=== PATIENT | male | born 1980 | race African-American/Black ===

== ENCOUNTER 2020-09-29 12:29 | Outpatient (REF) | payer OTHER, SELFPAY | END 2020-09-29 12:30 | disposition home or self-care (01) | LOC: HO.LAB 12:29 | PROVIDERS: PCP Internal Medicine; Visit Provider Internal Medicine | DX: Z20.822 Contact with and (suspected) exposure to COVID-19 (principal) | CPT/HCPCS: 36415; C9803; U0003 ==

== ENCOUNTER 2021-02-19 10:42 | Emergency (ER) | payer OTHER, SELFPAY ==
[2021-02-19 11:01] VITALS: BP 155/107; PULSE 88; RESP 18; TEMP 36.6; O2SAT 97; BMI 35.2
--- NOTE | 2021-02-19 11:44 | ED_ITS ---
HPI - General Adult General Chief complaint: Upper Respiratory Symptoms Stated complaint: asthma Time Seen by Provider: 02/19/21 11:09 Source: patient Mode of arrival: ambulatory Limitations: no limitations History of Present Illness HPI narrative: 41-year-old male who presents emergency department for evaluation of an asthma attack. Patient states these had an exacerbation of his asthma for 2 weeks. He states that he feels short of breath, has dyspnea on exertion has wheezing. He denies cough. He states that he has had chest tightness in the anterior part of his chest which is moderate to severe at times. The tightness is intermittent and is worse with breathing. He denied fever, chills, nausea, vomiting, myalgias, arthralgias. The patient states that he has been using his albuterol inhaler and nebulizer frequently with minimal improvement of his symptoms. The patient is on a preventative inhaler, Wixela but he ran out of this medication. He is taking montelukast. Related Data Previous Rx's Medication Instructions Recorded albuterol sulfate 2.5 mg INHALATION TID PRN #300 ml 09/22/20 montelukast 10 mg tablet 10 mg PO BEDTIME #270 tab 10/11/20 albuterol sulfate 90 mcg/actuation 2 puff INHALATION Q6H PRN #8.5 g 10/18/20 aerosol inhaler albuterol sulfate 2.5 mg INHALATION Q4H PRN #90 ml 02/19/21 fluticasone propion-salmeterol 1 inh INHALATION Q12H #60 ea 02/19/21 [Wixela Inhub] prednisone 60 mg PO DAILY 5 Days #15 tab 02/19/21 Allergies Allergy/AdvReac Type Severity Reaction Status Date / Time No Known Allergies Allergy Unverified 05/25/20 16:39 Review of Systems Review of Systems: Yes all other systems are reviewed and are negative FOR[facility]LY [facility], [facility] Past Medical History FOR[facility]LY [facility], [facility] Narrative: Past medical history: Asthma. Past surgical history: None. Social history: The patient denies tobacco use. He drinks alcohol 2 to 3 times a week in moderation. He smokes marijuana occasionally. Medical History (Updated 02/19/21 @ 11:53 by Gerson Quezada MD) Asthma Social History Social History Advance Directives: Yes Advance Directives Information Provided: Yes Advance Directives on File: No Physical Exam Vital Signs: Vital Signs: Last Vital Signs Temp 98 F 02/19/21 11:01 Pulse 88 02/19/21 11:01 Resp 18 02/19/21 11:01 BP 155/107 H 02/19/21 11:01 Pulse Ox 97 02/19/21 11:01 Body Mass Index 35.2 Const: General: cooperative and healthy appearing Orien tation/consciousness: oriented to person and oriented to place Limitations: no limitations HENMT: Head: Yes normal to inspection, Yes normocephalic and Yes atraumatic Ears: external ears normal General nose exam: Normal external nose present Face and sinus: Yes normal facial exam Mouth: Normal oral and palatal mucosa present Throat: Yes posterior oropharynx normal Eyes: Periorbital: periorbital findings normal Eyelids: Yes eyelids normal Conjunctivae: conjunctivae normal Sclerae: sclerae normal Corneas: corneas normal Pupils: Equal, round and reactive pupils present Direct Ophthalmoscopy: normal light reflex Neck: Neck: Yes full ROM, Yes no lymphadenopathy, Yes no meningeal signs, Yes trachea midline and Yes supple Chest: Chest palpation & inspection: normal inspection of the chest and normal palpation of entire chest wall Resp: Effort & Inspection: normal respiratory effort and able to speak in complete sentences Auscultation: wheezes expiratory wheezes, inspiratory wheezes and throughout Cardio: Rate: regular rate Rhythm: regular rhythm Heart sounds: S1 normal heart sound present, S2 normal heart sound present and no murmurs GI: Inspection: Yes normal to inspection Palpation (GI): Soft to palpation, nontender, no guarding, not rigid and No hepatosplenomegaly present : General: Yes no CVA tenderness Back/Spine/Pelvis: Back: no CVA tenderness Cervical Spine: normal cervical lordosis Thoracic/Lumbar Spine: thoracic and lumbar spine normal to inspection Skin: Lesions: no lesions Rashes: no rashes Wounds: no wounds Neuro: General: oriented to person, oriented to place and no meningeal signs Cranial nerves: Yes Equal, round and reactive pupils present Cognition (Neuro): normal cognition Motor exam (neuro): 5/5 motor strength present throughout Extrem: General: Yes normal to inspection and Yes full ROM Psych: Appearance: well kempt Mental Status: mental status grossly normal Speech and movement: Normal speech and movement present Affect: normal affect Attitude: cooperative Thought process: Normal thought process present Thought content: Normal thought content present Course Course Course Narrative: 41-year-old male who presents emergency department for evaluation of 2 weeks of asthma exacerbation with decreased effectiveness of his albuterol treatments. The patient denied fever or cough but is experiencing pleuritic chest pain. The patient's vital signs revealed an elevated blood pressure of 155/107 otherwise normal respiratory rate and normal O2 saturation of 97% on room air. The patient did not appear to be in respiratory distress but he does have inspiratory expiratory wheezing throughout lung kemp. The patient's presentation is consistent with an asthma exacerbation most likely triggered by pollen and change in weather, these are the triggers that the patient's at in the past. The patient was started on prednisone 60 mg once a day for 5 days. He is given his 1st dose orally here in the emergency department. I will refill his preventative inhaler and give him a refill on his albuterol nebulizer solutions. The patient was given verbal and printed instructions prior to discharge. The patient was advised to follow-up with their PCP in 2 days and to return to the emergency department if their symptoms get worse or if they develop any new symptoms that are concerning to them Discharge Plan Discharge Clinical Impression: Asthma exacerbation Qualifiers: Asthma severity: moderate Asthma persistence: persistent Qualified Code(s): J45.41 - Moderate persistent asthma with (acute) exacerbation Patient Disposition: Home, Self-Care Instructions: Asthma (ED) Prescriptions: New prednisone 20 mg tablet 60 mg PO DAILY 5 Days Qty: 15 RF: 0 albuterol sulfate 2.5 mg /3 mL (0.083 %) solution for nebulization 2.5 mg inhalation Q4H PRN (Reason: shortness of breath or wheezing) Qty: 90 RF: 0 fluticasone propion-salmeterol [Wixela Inhub] 250-50 mcg/dose blister with device 1 inh inhalation Q12H Qty: 60 RF: 0 No Action albuterol sulfate 2.5 mg /3 mL (0.083 %) solution for nebulization 2.5 mg inhalation TID PRN (Reason: bronchospasm) Qty: 300 RF: 1 montelukast 10 mg tablet 10 mg PO BEDTIME Qty: 270 RF: 2 albuterol sulfate [ProAir HFA] 90 mcg/actuation HFA aerosol inhaler 2 puff inhalation Q6H PRN (Reason: shortness of breath or wheezing) Qty: 8.5 RF: 0
[2021-02-19 11:57] VITALS: BP 155/108; PULSE 76; RESP 98; O2SAT 97
[2021-02-19] MEDS: predniSONE 20 MG TABLET 60 MG PO (12:06)
== END 2021-02-19 12:45 | disposition home or self-care (01) ==
PROVIDERS: Emergency Provider Emergency Medicine Emergency Medical Services; PCP Internal Medicine
DX: J45.41 Moderate persistent asthma with (acute) exacerbation (principal); Z79.899 Other long term (current) drug therapy
CPT/HCPCS: 99283; 99284

== ENCOUNTER 2021-03-09 07:40 | Emergency (ER) | payer OTHER, SELFPAY ==
[2021-03-09 07:41] VITALS: BP 165/103; PULSE 95; RESP 20; TEMP 36.6; O2SAT 95; BMI 36.0
--- NOTE | 2021-03-09 08:43 | ED.ASTHMA ---
HPI - Asthma General Chief Complaint: Asthma Stated Complaint: ASTHMA Time Seen by Provider: 03/09/21 08:23 Source: patient Mode of arrival: ambulatory Limitations: no limitations History of Present Illness HPI Narrative: 41-year-old male who presents emergency department for evaluation of asthma exacerbation, shortness of breath and nonproductive cough. the patient has had the symptoms for approximately 1 month. The patient was seen in the emergency department on 02/19/2021 by me at that time diagnosed with an asthma exacerbation. The patient was treated at that time with a pulse dose of prednisone x5 days, nebulizer inhalers and started on a preventive inhaler. He states that he felt better while he was on the steroids with his symptoms came back shortly after the pulse dose steroids stop. He states that he is using his ProAir albuterol inhaler 2 puffs 4 to 6 times a day and his nebulized albuterol solution 3 to 4 times a day and despite this he still feels short of breath. He states he has had a cough which is nonproductive. He denied chest pain. He denied fever, chills, abdominal pain, nausea or vomiting. The patient does work as a first line supervisor he states that his asthma is sensitive to pollen. Related Data Previous Rx's Medication Instructions Recorded albuterol sulfate 2.5 mg INHALATION TID PRN #300 ml 09/22/20 montelukast 10 mg tablet 10 mg PO BEDTIME #270 tab 10/11/20 albuterol sulfate 90 mcg/actuation 2 puff INHALATION Q6H PRN #8.5 g 10/18/20 aerosol inhaler albuterol sulfate 2.5 mg INHALATION Q4H PRN #90 ml 02/19/21 fluticasone propion-salmeterol 1 inh INHALATION Q12H #60 ea 02/19/21 [Wixela Inhub] prednisone 60 mg PO DAILY 5 Days #15 tab 02/19/21 albuterol sulfate 2.5 mg INHALATION Q4H PRN #90 ml 03/09/21 albuterol sulfate [ProAir HFA] 2 puff INHALATION Q4-6H PRN #8.5 g 03/09/21 prednisone 60 mg PO DAILY 5 Days #15 tab 03/09/21 prednisone See Rx Instructions .ROUTE 03/09/21 .COMPLEX #20 tab Allergies Allergy/AdvReac Type Severity Reaction Status Date / Time No Known Allergies Allergy Unverified 05/25/20 16:39 Review of Systems Review of Systems: Yes all other systems are reviewed and are negative Neurologic: Reports Abnormal speech present COUNT INCLUDES THE [facility] Past Medical History COUNT INCLUDES THE [facility] Narrative: Social history: The patient denies tobacco use, he drinks alcohol occasionally, he states that he occasionally smokes marijuana but has not used marijuana in 1 month. Medical History Asthma Social History Social History Advance Directives: No Advance Directives Information Provided: No Physical Exam Vital Signs: Vital Signs: Last Vital Signs Temp 97.8 F 03/09/21 07:41 Pulse 95 03/09/21 07:41 Resp 20 03/09/21 07:41 BP 165/103 H 03/09/21 07:41 Pulse Ox 95 03/09/21 07:41 Body Mass Index 36.0 Const: General: cooperative and healthy appearing Orientation/consciousness: oriented to person and oriented to place Limitations: no limitations HENMT: Head: Yes normal to inspection, Yes normocephalic and Yes atraumatic Ears: external ears normal General nose exam: Normal external nose present Face and sinus: Yes normal facial exam Mouth: Normal oral and palatal mucosa present Throat: Yes posterior oropharynx normal Eyes: Periorbital: periorbital findings normal Eyelids: Yes eyelids normal Conjunctivae: conjunctivae normal Sclerae: sclerae normal Corneas: corneas normal Pupils: Equal, round and reactive pupils present Direct Ophthalmoscopy: normal light reflex Neck: Neck: Yes full ROM, Yes no lymphadenopathy, Yes no meningeal signs, Yes trachea midline and Yes supple Chest: Chest palpation & inspection: normal inspection of the chest and normal palpation of entire chest wall Resp: Other: Normal respiratory pattern, symmetric breath sounds high medically, expiratory wheezing with good inspiratory and expiratory flow Cardio: Rate: regular rate Rhythm: regular rhythm Heart sounds: S1 normal heart sound present, S2 normal heart sound present and no murmurs GI: Inspection: Yes normal to inspection Palpation (GI): Soft to palpation, nontender, no guarding, not rigid and No hepatosplenomegaly present : General: Yes no CVA tenderness Back/Spine/Pelvis: Back: no CVA tenderness Cervical Spine: normal cervical lordosis Thoracic/Lumbar Spine: thoracic and lumbar spine normal to inspection Skin: Lesions: no lesions Rashes: no rashes Wounds: no wounds Neuro: General: oriented to person, oriented to place and no meningeal signs Cranial nerves: Yes CN's II-XII intact bilaterally and Yes Equal, round and reactive pupils present Cognition (Neuro): normal cognition Speech: Abnormal speech present Motor exam (neuro): 5/5 motor strength present throughout Extrem: General: Yes normal to inspection and Yes full ROM Psych: Appearance: well kempt Mental Status: mental status grossly normal Speech and movement: Normal speech and movement present Affect: normal affect Attitude: cooperative Thought process: Normal thought process present Thought content: Normal thought content present Course Course Course Narrative: 41-year-old male with history of asthma who has had shortness of breath, cough and wheezing x1 month. Patient was seen in the emergency department on 02/19/2021 and did improve with pulse dose steroids but his symptoms returned shortly after he completed the steroids. Physical examination did reveal expiratory wheezing otherwise was unremarkable. Patient was started on a another pulse dose of steroids 60 mg once a day for 5 days and then will be placed on a tapering course of prednisone 40 mg tapered off over 8 days. Patient was given a refill for his ProAir albuterol inhaler and for his Albuterol nebulizer solutions as well. Discharge Plan Discharge Clinical Impression: Asthma with acute exacerbation Patient Disposition: Home, Self-Care Instructions: Asthma (ED) Additional Instructions: Take prednisone 20 mg pills, 3 pills once a day for 5 days. I prescribed a 2nd prescription for prednisone 10 mg pills. after you complete the 5 day pulse course of steroids start prednisone 4 pills once a day for 2 days then 3 pills once a day for 2 days, then 2 pills once a day for 2 days then 1 pill once a day for 2 days. Continue to use your albuterol ( ProAir) inhaler 2 puffs every 4-6 hours as needed for shortness of breath. Continue to use your nebulizer solution 1 packet every 4 hours as needed for shortness of breath not relieved by your ProAir. Continue your preventive inhaler as well. Follow-up with your doctor in 2 days. Please return to the emergency department if your symptoms get worse or if you develop any symptoms that are concerning to you. Prescriptions: New prednisone 20 mg tablet 60 mg PO DAILY 5 Days Qty: 15 RF: 0 prednisone 10 mg tablet See Rx Instructions .ROUTE .COMPLEX Qty: 20 RF: 0 albuterol sulfate [ProAir HFA] 90 mcg/actuation HFA aerosol inhaler 2 puff inhalation Q4-6H PRN (Reason: shortness of breath or wheezing) Qty: 8.5 RF: 0 albuterol sulfate 2.5 mg /3 mL (0.083 %) solution for nebulization 2.5 mg inhalation Q4H PRN (Reason: shortness of breath or wheezing) Qty: 90 RF: 0 No Action albuterol sulfate 2.5 mg /3 mL (0.083 %) solution for nebulization 2.5 mg inhalation TID PRN (Reason: bronchospasm) Qty: 300 RF: 1 montelukast 10 mg tablet 10 mg PO BEDTIME Qty: 270 RF: 2 albuterol sulfate [ProAir HFA] 90 mcg/actuation HFA aerosol inhaler 2 puff inhalation Q6H PRN (Reason: shortness of breath or wheezing) Qty: 8.5 RF: 0 prednisone 20 mg tablet 60 mg PO DAILY 5 Days Qty: 15 RF: 0 albuterol sulfate 2.5 mg /3 mL (0.083 %) solution for nebulization 2.5 mg inhalation Q4H PRN (Reason: shortness of breath or wheezing) Qty: 90 RF: 0 fluticasone propion-salmeterol [Wixela Inhub] 250-50 mcg/dose blister with device 1 inh inhalation Q12H Qty: 60 RF: 0
== END 2021-03-09 08:57 | disposition home or self-care (01) ==
PROVIDERS: Emergency Provider Emergency Medicine Emergency Medical Services; PCP Internal Medicine
DX: J45.901 Unspecified asthma with (acute) exacerbation (principal); Z79.899 Other long term (current) drug therapy
CPT/HCPCS: 99283

== ENCOUNTER 2021-09-05 07:21 | Outpatient (REF) | payer OTHER, SELFPAY | END 2021-09-05 07:22 | disposition home or self-care (01) | LOC: HO.HMGCLDS 07:21 | PROVIDERS: Visit Provider Internal Medicine | DX: Z20.822 Contact with and (suspected) exposure to COVID-19 (principal) | CPT/HCPCS: C9803; U0003; U0005 ==

== ENCOUNTER 2021-10-07 03:14 | Emergency (ER) | payer SELFPAY ==
--- NOTE | ~2021-10-07 | XR_ITS ---
EXAMINATION: XR CHEST CLINICAL INFORMATION: Shortness of breath COMPARISON: 09/20/2015 TECHNIQUE: Frontal view of the chest was obtained. FINDINGS: Cardiac leads overlie the chest. The lungs are well expanded. There is no focal consolidation, edema, or effusion. No pneumothorax. The cardiomediastinal silhouette is within normal limits. No acute osseous abnormality. XR/XR chest 1V IMPRESSION: Clear lungs.
[2021-10-07 03:34] VITALS: BP 167/111; PULSE 96; RESP 24; TEMP 36.7; O2SAT 93; BMI 34.0
--- NOTE | 2021-10-07 03:40 | ED_ITS ---
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) Associated symptoms: dry cough Asthma History: childhood onset Treatments Prior to Arrival: inhaled bronchodilator Related Data Home Medications Medication Instructions Recorded Confirmed albuterol sulfate mg INHALATION 10/07/21 albuterol sulfate 90 2 inh INHALATION Q6H PRN 10/07/21 10/07/21 mcg/actuation aerosol inhaler fluticasone propionate 115 2 inh INHALATION BID 10/07/21 10/07/21 mcg-salmeterol 21 mcg/actuation HFA inhaler (Advair HFA) montelukast 10 mg tablet 1 tab PO DAILY 10/07/21 10/07/21 Previous Rx's Medication Instructions Recorded blood pressure monitor #1 ea 07/17/21 albuterol sulfate 2.5 mg (3 mL) INHALATION Q4-6H PRN 10/07/21 #75 ml prednisone 20 mg tablet 60 mg PO DAILY 5 Days #15 tab 10/07/21 Allergies Allergy/AdvReac Type Severity Reaction Status Date / Time No Known Allergies Allergy Verified 09/21/21 09:11 Review of Systems Verdana 4l Review of Systems: Verdana 4d Verdana 4d Constitutional : No Fever, No Chills ENT/Mouth : No Hoarseness, No sore throat, No Rhinorrhea Eyes: No Redness, No Discharge, No Vision Changes Cardiovascular : No Chest Pain, positive SOB, positive Dyspnea on Exertion, No Edema RespiratoryRespiratory : positive Cough, No Sputum, positive Wheezing, Gastrointestinal : No Nausea, No Vomiting, No Diarrhea, No abdominal Pain Genitourinary : No Dysuria, No Hematuria Musculoskeletal : No joint pain, No Myalgias Skin : No rash Neuro : No Weakness, No Numbness, No Headache Psych : No anxiety, depression Heme/Lymph: No Bruising, No Bleeding Endocrine : No Polyuria, No Polydipsia All other systems reviewed and are negative PMFSH Past Medical History Attestation statement: The following information was validated with the patient. Medical History Asthma Generalized anxiety disorder Obesity (BMI 30-39.9) Tobacco abuse Surgical History (Updated 07/17/21 @ 15:42 by JENNIFFER Lees) No pertinent past surgical history Family History Family History (Updated 07/17/21 @ 15:43 by JENNIFFER Lees) Mother Diabetes Father No problems noted. Social History Social History Housing: House Alcohol intake: current Alcohol intake frequency: a few times a month Patient Tobacco Use Status: Never used Tobacco e-Cigarette/Vaping Use: Never Used Second Hand Smoke Exposure: No Substance Use Type: Marijuana Advance Directives: No Advance Directives Information Provided: Yes service: No Current occupational status: employed Current occupation: Self employed Cognitive needs: No Hearing needs: No Vision needs: No Physical Exam Verdana 4l Vital Signs: Verdana 4d Verdana 4d Vital Signs: Verdana 4d Verdana 4Bd Last Vital Signs Verdana 4d Manager Hematology New 4d Manager Hematology New 4d Temp 98.1 F 10/07/21 03:34 Manager Hematology New 4d Pulse 93 10/07/21 05:49 Manager Hematology New 4d Resp 19 10/07/21 05:49 BP 147/84 H 10/07/21 05:49 Pulse Ox 100 10/07/21 05:49 BMI result Body Mass Index 34.0 Appearance: Alert. Oriented X3. Mild acute distress. Eyes: Pupils equal, round and reactive to light. ENT: Pharynx normal. Neck: Normal inspection. Neck supple. CVS: Normal heart rate and rhythm. Pulses normal. Respiratory: Mild respiratory distress - retractions and tachypnea. Breath sounds decreased throughout with diffuse end exp wheezes Abdomen: Soft and nontender. Skin: Skin warm and dry. Normal skin color. Normal skin turgor. Extremities: No lower extremity edema. No calf ttp Neuro: Oriented X 3. No motor deficit. No sensory deficit. Course Course Course Narrative: adding on duoneb patient still very tachypneic - diaphoretic still tight and wheezing, will repeat 5mg neb though much improved diaphoresis resolved will need admission for asthma, patient aware hospitalist was going to admit but patient now states he feels better and wants to maybe go home patient does not want to stay, 93% on RA, alert and oriented x 3 states he is aware we want to admit him but states he can control this at home, RN present for entire conversation. He was instructed to call 911 for any issues and that he could come back at any time and that we recommended admission. 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 Dispo per results and findings. Lab Data Result diagrams: 10/07/21 03:56 10/07/21 03:56 Labs: Lab Results 10/07/21 10/07/21 10/07/21 Range/Units 03:38 03:56 03:56 WBC 10.7 (4.8-10.8) X10*3/uL RBC 4.39 L (4.60-5.80) X10*6/uL Hgb 14.1 (14.0-18.0) g/dl Hct 41.7 L (42.0-52.0) % MCV 95.0 (80.0-98.0) fL MCH 32.1 (27.0-33.0) pg MCHC 33.8 (31.0-36.0) g/dl RDW 11.9 (11.0-16.0) % Plt Count 272 (160-400) X10*3/uL MPV 10.6 (9.4-12.4) fL Immature Gran % (Auto) 0.3 (0.0-0.4) % Neut % (Auto) 64.8 (45-73) % Lymph % (Auto) 26.5 (20-40) % [place] % (Auto) 7.2 (2-11) % Eos % (Auto) 0.5 (0-4) % Baso % (Auto) 0.7 (0-2) % Lymph # (Auto) 2.8 (1.2-4.9) X10*3/uL [place] # (Auto) 0.8 (0.1-1.2) X10*3/uL Eos # (Auto) 0.1 (0.0-0.4) X10*3/uL Baso # (Auto) 0.1 (0.0-0.2) X10*3/uL Abs Immat Gran (auto) 0.03 (0.00-0.03) X10*3/uL Absolute Neuts (auto) 6.9 (2.0-8.3) x10*3/uL Absolute Nucleated RBC 0.000 (0.0-0.012) X10*3/uL Nucleated RBC % (auto) 0.0 (0.0-0.2) /100WBC Sodium 142 (135-145) mmol/L Potassium 4.0 (3.3-5.1) mmol/L Chloride 111 H (96-108) mmol/L Carbon Dioxide 20 L (22-29) mmol/L Anion Gap 15 (12-20) BUN 11 (9-16) mg/dL Creatinine 1.01 (0.5-1.4) mg/dL Estim Creat Clear Calc 114.5 Estimated GFR > 60 Random Glucose 123 H (60-115) mg/dL Calcium 9.4 (8.4-10.2) mg/dL COVID-19 ([facility]) Negative (Negative) COVID-19 Clin Com See Note Critical Care Time Critical Care Time Critical Care Time: Yes Total Critical Care Time: 60 Attestation: repeat hour long nebs, reassessments I attest to this time spent taking care of the patient Discharge Plan Discharge Clinical Impression: Asthma with exacerbation Patient Disposition: Home, Self-Care Instructions: Asthma (ED) Additional Instructions: return to ED for any worsening symptoms or concerns you were offered admission but declined, this was a serious asthma attack. you can come back at any time. if you have any issues please call 911. Prescriptions: New albuterol sulfate 2.5 mg /3 mL (0.083 %) solution for nebulization 2.5 mg inhalation Q4-6H PRN (Reason: bronchospasm) Qty: 75 0RF prednisone 20 mg tablet 60 mg PO DAILY 5 Days Qty: 15 0RF No Action albuterol sulfate 2.5 mg /3 mL (0.083 %) solution for nebulization inhalation 0RF montelukast 10 mg tablet 1 tab PO DAILY 0RF albuterol sulfate 90 mcg/actuation HFA aerosol inhaler 2 inh inhalation Q6H PRN (Reason: Shortness Of Breath Or Wheezing) 0RF Advair HFA 115-21 mcg/actuation Hfa Aerosol Inhaler 2 inh INHALATION BID 0RF (DME) blood pressure monitor Kit See Rx Instructions .Route Qty: 1 0RF Rx Instructions: As directed Stand Alone Forms: Work/School Release
[2021-10-07] MEDS: Magnesium Sulfate/H2O 2 GM/50 ML PIGGYBACK IV (03:49)
[2021-10-07] MEDS: Albuterol Sulfate (0.083%) 2.5 MG/3 ML VIAL.NEB 10 MG INHALE (03:49)
[2021-10-07] MEDS: methylPREDNISolone Sod Succ 125 MG/2 ML VIAL IVPUSH (03:49)
[2021-10-07 03:56] VITALS: BP 147/113; PULSE 94; RESP 31; O2SAT 100
[2021-10-07 04:02] LABS: MANUAL DIFF FLAG NO
--- NOTE | 2021-10-07 04:02 | PC.NURSE ---
dr slater at bedside pt diaphoretic, reports it's not getting better. pt continues with neb tx, mag infusing. pt on bedside cardiac nurse, nsr.
[2021-10-07 04:03] LABS: Basophils Absolute Auto 0.1 X10*3/uL (0.0-0.2); Basophils Percent Auto 0.7 % (0-2); Eosinophils Absolute Auto 0.1 X10*3/uL (0.0-0.4); Eosinophils Percent Auto 0.5 % (0-4); Hematocrit 41.7 % (42.0-52.0); Hemoglobin 14.1 g/dl (14.0-18.0); Imm Gran Abs Auto 0.03 X10*3/uL (0.00-0.03); Imm Gran Pct Auto 0.3 % (0.0-0.4); Lymphocytes Absolute Auto 2.8 X10*3/uL (1.2-4.9); Lymphocytes Percent Auto 26.5 % (20-40); Mean Corpuscular HGB Conc 33.8 g/dl (31.0-36.0); Mean Corpuscular Hemoglobin 32.1 pg (27.0-33.0); Mean Platelet Volume 10.6 fL (9.4-12.4); Monocytes Absolute Auto 0.8 X10*3/uL (0.1-1.2); Monocytes Percent Auto 7.2 % (2-11); Neutrophils Absolute Auto 6.9 x10*3/uL (2.0-8.3); Neutrophils Percent Auto 64.8 % (45-73); Platelet Count 272 X10*3/uL (160-400); Red Blood Count 4.39 X10*6/uL (4.60-5.80); Red Cell Distribution Width 11.9 % (11.0-16.0); White Blood Count 10.7 X10*3/uL (4.8-10.8)
[2021-10-07] MEDS: Albuterol/Iprat 2.5/0.5MG 3 ML AMPUL.NEB INHALE (04:11)
[2021-10-07 04:14] VITALS: BP 164/119; PULSE 103; RESP 27; O2SAT 100
[2021-10-07 04:16] LABS: COVID-19 Test Negative (Negative)
[2021-10-07 04:23] LABS: Anion Gap 15 (12-20); Blood Urea Nitrogen 11 mg/dL (9-16); Calcium 9.4 mg/dL (8.4-10.2); Carbon Dioxide 20 mmol/L (22-29); Chloride 111 mmol/L (96-108); Creatinine Clr Calc Pharmacy 114.5; Estimated Glomerular Filt Rate > 60; Glucose Random 123 mg/dL (60-115); Sodium 142 mmol/L (135-145)
[2021-10-07 04:28] VITALS: BP 157/119; PULSE 105; RESP 21; O2SAT 98
--- NOTE | 2021-10-07 04:30 | PC.NURSE ---
initial neb tx complete. dr slater to bedside, reeval with persistent wheezing. plan for 5mg neb tx in ~30minutes and likely admission to hospital for further mgmt. pt agreeable.
[2021-10-07] MEDS: Albuterol Sulfate (0.083%) 2.5 MG/3 ML VIAL.NEB 5 MG INHALE (04:49)
[2021-10-07 05:49] VITALS: BP 147/84; PULSE 93; RESP 19; O2SAT 100
[2021-10-07 06:11] VITALS: BP 141/95; PULSE 97; RESP 16; O2SAT 94
--- NOTE | 2021-10-07 06:12 | PC.NURSE ---
this rn with dr slater to bedside, encouraging pt to be admitted to hospital. pt refusing admission to hospital, requesting DC home. pt educated on reasons to return/call 911. pt verbalizes understanding.
== END 2021-10-07 06:21 | disposition home or self-care (01) ==
PROVIDERS: Emergency Provider Emergency Medicine
DX: J45.901 Unspecified asthma with (acute) exacerbation (principal); R06.02 Shortness of breath; F12.90 Cannabis use, unspecified, uncomplicated; Z20.822 Contact with and (suspected) exposure to COVID-19; Z79.899 Other long term (current) drug therapy
CPT/HCPCS: 36415; 71045; 80048; 85025; 87635; 96365; 96376; 99284; J2930; J3475

== ENCOUNTER 2022-01-01 10:21 | Emergency (ER) | payer SELFPAY ==
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
[2022-01-01 10:25] VITALS: BP 137/88; PULSE 71; RESP 18; TEMP 36.3; O2SAT 97; BMI 34.7
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
== END 2022-01-01 13:32 | disposition home or self-care (01) ==
PROVIDERS: Emergency Provider Emergency Medicine; PCP Internal Medicine
DX: S39.012A Strain of muscle, fascia and tendon of lower back, initial encounter (principal); S46.912A Strain of unspecified muscle, fascia and tendon at shoulder and upper arm level, left arm, initial encounter; R07.89 Other chest pain; J45.909 Unspecified asthma, uncomplicated; V43.52XA Car driver injured in collision with other type car in traffic accident, initial encounter; Y93.9 Activity, unspecified; Y92.410 Unspecified street and highway as the place of occurrence of the external cause; Y99.9 Unspecified external cause status
CPT/HCPCS: 71101; 72100; 73030; 99283

== ENCOUNTER 2022-10-02 09:39 | Outpatient (REF) | payer OTHER, SELFPAY ==
--- NOTE | 2022-10-02 09:45 | ECG_ITS ---
Test Reason : essen htn Blood Pressure : / mmHG Vent. Rate : 072 BPM Atrial Rate : 072 BPM P-R Int : 138 ms QRS Dur : 082 ms QT Int : 374 ms P-R-T Axes : 006 053 004 degrees QTc Int : 409 ms Normal sinus rhythm Normal ECG When compared with ECG of 06-JAN-2006 18:16, No significant changes seen Referred By: Kaitlynn Moreau Electronically Signed By:THEA LOUIS
[2022-10-02 11:06] LABS: Alanine Aminotransferase 33 U/L (0-40); Albumin Level 4.4 g/dL (3.5-5.0); Alkaline Phosphatase 71 U/L (39-117); Anion Gap 13 (12-20); Aspartate Amino Transferase 27 U/L (5-37); Bilirubin Total 0.8 mg/dL (0.0-1.0); Blood Urea Nitrogen 13 mg/dL (9-16); Calcium 9.4 mg/dL (8.4-10.2); Carbon Dioxide 26 mmol/L (22-29); Chloride 106 mmol/L (96-108); Cholesterol 217 mg/dL; Estimated Glomerular Filt Rate > 60; Glucose Fasting 110 mg/dL (60-99); HDL Cholesterol 47 mg/dL; LDL Cholesterol Calculated 159 mg/dl; Potassium 4.8 mmol/L (3.3-5.1); Sodium 140 mmol/L (135-145); Total Protein 7.3 g/dL (6.5-8.0); Triglycerides 56 mg/dL
== END 2022-10-02 09:40 | disposition home or self-care (01) ==
LOC: HO.LAB 09:39
PROVIDERS: PCP Nurse Practitioner Family; Visit Provider Nurse Practitioner Family
DX: I10 Essential (primary) hypertension (principal)
CPT/HCPCS: 36415; 80053; 80061; 93005

== ENCOUNTER 2023-06-04 07:47 | Emergency (ER) | payer OTHER, SELFPAY ==
[2023-06-04 07:54] VITALS: BP 155/98; PULSE 77; RESP 16; TEMP 37; O2SAT 98; BMI 35.7
--- NOTE | 2023-06-04 08:12 | ED_ITS ---
HPI - Asthma General Chief Complaint: Asthma Stated Complaint: Asthma Diff Breathing Time Seen by Provider: 06/04/23 08:06 Source: patient Mode of arrival: ambulatory Limitations: no limitations History of Present Illness HPI Narrative: 43-year-old male with known history of asthma for many years patient been having wheezing, difficulty breathing, and dry cough eating for few days, patient has been using his bronchodilator no relief usually gets better after short course of prednisone. Was then admitted to the hospital for asthma related problem in the past year, no ICU admission, no recent intubation. Related Data Previous Rx's Medication Instructions Recorded fluticasone propionate 230 2 puff inhalation BID 30 days #12 06/13/22 mcg-salmeterol 21 mcg/actuation grams HFA inhaler (Advair HFA) lisinopril 5 mg tablet 5 mg PO DAILY #30 tabs 10/09/22 montelukast 10 mg tablet 10 mg PO DAILY #90 tabs 12/06/22 albuterol sulfate 2.5 mg/3 mL 2.5 mg (3 mL) inhalation Q4H PRN 03/27/23 (0.083 %) solution for nebulization shortness of breath or wheezing #180 mL albuterol sulfate 90 mcg/actuation 2 puff inhalation Q4-6H PRN 03/27/23 aerosol inhaler (Ventolin HFA) shortness of breath or wheezing #6.7 grams albuterol sulfate 90 mcg/actuation 2 puff PO Q6H PRN for wheezing #18 03/29/23 aerosol inhaler ea prednisone 20 mg tablet 20 mg PO BID #10 tabs 06/04/23 Allergies Allergy/AdvReac Type Severity Reaction Status Date / Time No Known Allergies Allergy Verified 09/17/22 10:29 Review of Systems Review of Systems: All other systems are reviewed and are negative Constitutional: Reports as per HPI and Reports no additional constitutional complaints Eyes: Reports as per HPI and Reports no additional eye complaints Reports system reviewed and no additional complaints, except as documented Cardiovascular: Reports as per HPI and Reports no additional cardiovascular complaints Respiratory: Reports as per HPI and Reports no additional respiratory complaints Gastrointestinal: Reports as per HPI and Reports no additional gastrointestinal complaints Genitourinary: Reports no additional female genitourinary complaints Musculoskeletal: Reports no additional musculoskeletal complaints Skin/Breast: Reports system reviewed and no additional complaints, except as docu Psychiatric: Reports no additional psychiatric complaints Endocrine: Reports no additional endocrine complaints Hematologic/Lymphatic: Reports no additional hematologic/lymphatic complaints Allergic/Immunologic: Reports no additional allergic/immunologic complaints Reports system reviewed and no additional complaints, except as documented and Reports Abnormal speech present [facility] Past Medical History Medical History Obesity (BMI 30-39.9) Generalized anxiety disorder Tobacco abuse Asthma Surgical History No pertinent past surgical history Family History Family History Mother Diabetes Father No problems noted. Social History Social History Housing: House Alcohol intake: never Patient Tobacco Use Status: Never used Tobacco Smoked in Last 30 Days: No e-Cigarette/Vaping Use: Never Used Second Hand Smoke Exposure: No Use of substances other than those prescribed or required for medical reasons: Yes Substance Use Type: Marijuana Substance Use Frequency: Occasionally Advance Directives: No service: No Current occupational status: employed Current occupation: Self employed Cognitive needs: No Hearing needs: No Vision needs: No Physical Exam Vital Signs: Vital Signs: Last Vital Signs Temp 98.6 F 06/04/23 07:54 Pulse 86 06/04/23 09:06 Resp 22 H 06/04/23 09:06 BP 155/98 H 06/04/23 07:54 Pulse Ox 98 06/04/23 07:54 O2 Del Method Room Air 06/04/23 07:54 BMI result Body Mass Index 35.7 Vital signs have been reviewed and appear to be correct. Blood pressure elevated. Heart rate normal. Respiratory rate normal. Temperature normal. Oxygen saturation normal. Appearance: Alert. Oriented X3. No acute distress. Head: Normal external exam. Normocephalic. Atraumatic. No Turner signs noted. No raccoon eyes noted Eyes: PERRLA. EOMI. Conjunctiva and sclera normal. Eyelids normal. ENT: TM's Normal. Pharynx normal. Uvula midline. Moist mucous membranes. No trismus noted. No drooling noted. No muffled voice noted. Neck: Normal inspection. Neck supple. FROM. No adenopathy. Thyroid Normal. No meningeal signs. No neck mass noted. CVS: Normal heart rate and rhythm. Heart sound normal. No murmurs noted. Pulses normal throughout. Respiratory: No respiratory distress. Painless inspiration. Breath sounds normal. Mild diffuse expiratory wheezing with prolonged expiration, Chest no ntender. No accessory muscle usage noted or decreased air movement noted. Abdomen: Soft and nontender. Bowel sounds normal in all 4 quadrants. No distention noted. No organomegaly noted. No visible injury noted. Back: No CVA tenderness. Full range of motion noted. Skin: Skin warm and dry. Normal skin color. Normal skin turgor. No rashes/lesions/lacerations noted. Extremities: No lower extremity edema. Extremities exhibit normal range of motion. Extremities nontender. Neuro: Oriented X 3. Cranial nerve exam: II-XII are grossly intact No motor deficit. No sensory deficit. Reflexes normal. Course Course Course Narrative: 43-year-old male with history of asthma came in with acute exacerbation patient usually get asthma exacerbation around this time of the year usually respond to prednisone well, patient has enough bronchodilator at home home. Reevaluation(s) Reevaluation #1: feels much better after received 10 mg of albuterol with prednisone will discharge home on 5 days course of prednisone , and follow-up with PCP. Time: 10:07 Medications Administered Discontinued Medications Generic Name Dose Route Start Last Admin Trade Name Freq PRN Reason Stop Dose Admin Albuterol Sulfate 2.5 mg/ 5 mg 06/04/23 08:40 06/04/23 08:45 Albuterol Sulfate 2.5 mg INHALE 06/04/23 08:41 5 mg ONCE ONE Administration Albuterol Sulfate 2.5 mg/ 5 mg 06/04/23 09:00 06/04/23 09:06 Albuterol Sulfate 2.5 mg INHALE 06/04/23 09:01 5 mg ONCE ONE Administration Prednisone 40 mg 06/04/23 08:11 06/04/23 08:35 Prednisone 20 Mg Tablet PO 06/04/23 08:12 40 mg ONCE ONE Administration Medical Decision Making Differential Diagnosis Differential Diagnoses: The differential diagnosis associated with the presentation includes ( Acute asthma exacerbation, pneumonia, pneumothorax, pleural effusion.) Admission/Observation Consideration of admission/observation: Escalation of care including admission/observation considered Independent Interpretation I performed an independent interpretation of an: Plain X-Ray ( Chest: No acute intrathoracic pathology.) Radiology Impression Discussion of test interpretation with radiology: I discussed test interpretation with the radiologist Discharge Plan Discharge Clinical Impression: Asthma with acute exacerbation Patient Disposition: Home, Self-Care Instructions: Asthma (ED) Prescriptions: New prednisone 20 mg tablet 20 mg PO BID Qty: 10 0RF No Action Advair HFA 230-21 mcg/actuation HFA aerosol inhaler 2 puff inhalation BID 30 Days Qty: 12 3RF lisinopril 5 mg tablet 5 mg PO DAILY Qty: 30 1RF montelukast 10 mg tablet 10 mg PO DAILY Qty: 90 1RF albuterol sulfate [Ventolin HFA] 90 mcg/actuation HFA aerosol inhaler 2 puff inhalation Q4-6H PRN (Reason: shortness of breath or wheezing) Qty: 6. 7 0RF albuterol sulfate 2.5 mg /3 mL (0.083 %) solution for nebulization 2.5 mg inhalation Q4H PRN (Reason: shortness of breath or wheezing) Qty: 180 0RF albuterol sulfate 90 mcg/actuation HFA aerosol inhaler 2 puff PO Q6H PRN (Reason: for wheezing) Qty: 18 0RF Referrals: Po,Radha Coy MD [Primary Care Provider] -
[2023-06-04] MEDS: predniSONE 20 MG TABLET 40 MG PO (08:35)
--- NOTE | 2023-06-04 08:36 | PC.NURSE ---
patient a&ox3, pt speaking in full sentences, pt lungs have in/ex wheezing throughout, pt states hes been doing home nebs at home without relief, pt medicated with prednisone per order, call holt within reach, will continue to monitor
[2023-06-04] MEDS: Albuterol Sulfate 2.5 MG, Albuterol Sulfate (0.083%) 2.5 MG 5 MG INHALE ×2 (08:45→09:06)
[2023-06-04 08:46] VITALS: PULSE 74; RESP 22; O2SAT 95
[2023-06-04 09:06] VITALS: PULSE 86; RESP 22; O2SAT 97
[2023-06-04 10:21] VITALS: BP 151/89; PULSE 78; RESP 20; TEMP 36.6; O2SAT 97
--- NOTE | 2023-06-04 10:22 | PC.NURSE ---
patient a&ox3, lungs continue to have wheezing but able to hear air movement, pt speaking in full sentences, vss, call holt within reach, pt to be discharged.
== END 2023-06-04 10:23 | disposition home or self-care (01) ==
PROVIDERS: Emergency Provider Emergency Medicine; PCP Internal Medicine
DX: J45.901 Unspecified asthma with (acute) exacerbation (principal); R05.9 Cough, unspecified; R06.02 Shortness of breath; Z79.899 Other long term (current) drug therapy
CPT/HCPCS: 94640; 99284; 99285

== ENCOUNTER 2023-06-24 15:42 | Outpatient (AMB) | payer OTHER, SELFPAY ==
[2023-06-24 15:44] VITALS: BP 142/90; PULSE 104; O2SAT 95; BMI 35.1
--- NOTE | 2023-06-24 15:44 | MHC.PC.OV ---
Vital Signs 06/24/23 15:44 Height 5 ft 8 in Weight 231 lb BMI 35.1 BP 142/90 H Blood Pressure Location Lt brachial Position Sitting Pulse 104 H Pulse Source Pulse Oximeter Temp Source Skin Pulse Oximetry (%) 95 Oxygen Delivery Method Room Air Intake Visit Reasons: ED f/u for SOB Intake Note: Patient is here to follow-up after [place] [facility] [place] Attendance Clerk Required: No Allergies No Known Allergies Allergy (Verified 06/24/23 16:00) Medication List - Last Reconciled 06/24/23 by FAVIO Wade albuterol sulfate 90 mcg/actuation (Ventolin HFA) 2 puffs inhalation Q4-6H PRN albuterol sulfate 2.5 mg (3 mL) inhalation Q4H PRN albuterol sulfate 90 mcg/actuation 2 puffs PO Q6H PRN fluticasone propion-salmeterol 230-21 mcg/actuation (Advair HFA) 2 puffs inhalation BID 30 days lisinopril 5 mg PO DAILY montelukast 10 mg PO DAILY Tobacco use date assessed: 06/24/23 HPI ED f/u for SOB HPI Details Patient is a 43-year-old male who presents today to after [place] [facility] visit 06/04/2023 due to asthma exacerbation. Patient of Dr. Voss. Patient discharged home with prednisone for 5 days, patient reports that he has finished prednisone as prescribed. Patient reports that she was feeling good until couple days ago he started shortness of breath at night and wheezing throughout the day, he denies much cough. He reports using albuterol inhaler/nebulizer about 5 times per day with very minimal improvement. Denies chest pain. No fever. [facility] Medical History Obesity (BMI 30-39.9) Generalized anxiety disorder Tobacco abuse Asthma Surgical History No pertinent past surgical history Family History Mother Diabetes Father No problems noted. Social History Housing: House Alcohol intake: never Patient Tobacco Use Status: Never used Tobacco e-Cigarette/Vaping Use: Never Used Second Hand Smoke Exposure: No Substance Use Type: Marijuana service: No Current occupational status: employed Current occupation: Self employed Cognitive needs: No Hearing needs: No Vision needs: No Questionnaire PHQ-9 Over the last 2 weeks, how often have you been bothered by any of the following problems? 1. Little interest or pleasure in doing things: not at all 2. Feeling down, depressed, or hopeless: not at all 3. Trouble falling or staying asleep, or sleeping too much: not at all 4. Feeling tired or having little energy: not at all 5. Poor appetite or overeating: not at all 6. Feeling bad about yourself - or that you are a failure or have let yourself or your family down: not at all 7. Trouble concentrating on things, such as reading the newspaper or watching television: not at all 8. Moving or speaking so slowly that other people could have noticed. Or the opposite - being so fidgety or restless that you have been moving around a lot more than usual: not at all 9. Thoughts that you would be better off or of hurting yourself in some way: not at all Total score: 0 Depression Screening Interpretation: Negative Depression Screening Done: Yes 10383 - PHQ-9 Billing: Yes Source: Developed by Drs. Xavi Plata, Katy Hernández, Kingston Jiménez and colleagues, with an educational jaiden from [employer]. Thrive Questionnaire Date Thrive assessed: 05/09/22 AUDIT C Alcohol Use Questionnaire (AUDIT-C) 1. How often do you have a drink containing alcohol?: 2-4 times a month 2. How many drinks containing alcohol do you have on a typical day when you are drinking?: 3 or 4 3. How often do you have six or more drinks on one occasion?: Never Total Score: 3 Score Reviewed/Action Taken: No SHAINA-7 AMB Questionnaire SHAINA-7 Date SHAINA - 7 assessed: 06/24/23 Feeling nervous, anxious, or on edge: 0 = Not at all Not being able to stop or control worryin = Not at all Worrying too much about different things: 0 = Not at all Trouble relaxin = Not at all Being so restless that it is hard to sit still: 0 = Not at all Becoming easily annoyed or irritable: 0 = Not at all Feeling afraid as if something awful might happen: 0 = Not at all Total SHAINA-7 score (0-4 normal; 5-9 mild; 10-14 moderate; 15-21 severe): 0 Source: Developed by Drs. Xavi Plata, Katy Hernández, Kingston Jiménez and colleagues, with an educational jaiden from [employer]. SHAINA-7 Assessment Billing SHAINA-7 Assessment Tool: SHAINA-7 Assessment 14203 Review of Systems Const Denies body aches, Denies chills, Denies fever(s) and Denies headache(s) ENT Denies dizziness, Denies otalgia, Denies headache(s), Denies nasal discharge, Denies sinus pain and Denies sore throat Card Denies chest pain, Denies edema, Denies lightheadedness and Reports dyspnea Resp Reports cough, Reports dyspnea and Reports wheezing GI Denies abdominal pain Denies dysuria Musc Denies myalgias Skin/Breast Denies lesions, Denies rash and Denies unusual bruising Neuro Denies dizziness and Denies headache(s) Aller/Immun Reports wheezing Physical exam (Primary Care) Vital Signs: Last Vital Signs Pulse 104 H 06/24/23 15:44 BP 142/90 H 06/24/23 15:44 Pulse Ox 95 06/24/23 15:44 Oxygen Delivery Method Room Air 06/24/23 15:44 BMI result Body Mass Index 35.1 Tobacco/Smoking Status: Tobacco use Status Tobacco use date assessed 06/24/23 06/24/23 15:45 Patient Tobacco Use Status Never used Tobacco 06/24/23 15:45 e-Cigarette/Vaping Use Never Used 06/24/23 15:45 PHQ-9: PHQ-9 Score PHQ-9: Total score 0 06/24/23 15:48 Depression Screening Interpretation: Negative Thrive Assessment: Date of Thrive Assessment Date Thrive assessed 05/09/22 06/24/23 15:45 Const General: cooperative and no acute distress Orientation/consciousness: patient oriented x3 HENMT Head: Yes normocephalic and Yes atraumatic Face and sinus: Yes sinuses nontender Mouth: oropharynx normal and moist mucous membranes Throat: Yes posterior oropharynx normal Eyes General: appearance normal, both eyes and all related structures Neck Neck: Yes normal visual inspection, Yes full ROM and Yes no lymphadenopathy Resp Effort & Inspection: normal respiratory effort and able to speak in complete sentences Auscultation: clear to auscultation bilaterally (Bilateral upper), no crackles, no rales, no rhonchi and wheezes lower bilaterally Cardio Rate: regular rate Rhythm: regular rhythm Heart sounds: S1 normal heart sound present, S2 normal heart sound present and no murmurs GI Auscultation: normal bowel sounds Skin General skin exam: no rashes or lesions noted Neuro General: patient oriented x3 Gait exam (Neuro): Normal gait present Extrem General: Yes full ROM and No edema Assessment and Plan Assessment & Plan (1) Asthma exacerbation: Code(s): J45.901 - Unspecified asthma with (acute) exacerbation Qualifiers: Asthma persistence: persistent Asthma severity: moderate Qualified Code(s): J45.41 - Moderate persistent asthma with (acute) exacerbation Plan: Patient with recurring asthma exacerbation symptoms. Physical exam with wheezes bilateral lower lungs. Start Z-Mich and prednisone. Patient is to continue Advair inhaler and albuterol inhaler/nebulizer treatment p.r.n.. Signs and symptoms reviewed when to notify provider or go to the emergency department. Patient agreed with the plan. Medications: New azithromycin take 500 mg today (day 1), then 250 mg for 4 days (days 2-5) PO 6 tabs 0RF J45.901 - Unspecified asthma with (acute) exacerbation prednisone 40 mg (2 x 20 mg) PO DAILY 5 days 10 tabs 0RF J45.901 - Unspecified asthma with (acute) exacerbation Coding Level of Care Code Est Pt Level 3 (27614) Diagnoses Asthma exacerbation J45.41 Asthma persistence: persistent Asthma severity: moderate Additional Codes SHAINA-7 Assessment Billing - SHAINA-7 Assessment Tool: SHAINA-7 Assessment 49247 ([id number])
== END 2023-06-24 16:10 | disposition home or self-care (01) ==
PROVIDERS: PCP Nurse Practitioner Family; Visit Provider Nurse Practitioner Family
DX: J45.41 Moderate persistent asthma with (acute) exacerbation (principal)
CPT/HCPCS: 99213

== ENCOUNTER 2023-10-09 08:47 | Outpatient (AMB) | payer SELFPAY ==
[2023-10-09 08:48] VITALS: BP 118/68; PULSE 76; O2SAT 96; BMI 35.4
--- NOTE | 2023-10-09 08:48 | A.OFFPC_ITS ---
Vital Signs 10/09/23 08:48 Height 5 ft 8 in Weight 233 lb BMI 35.4 BP 118/68 Blood Pressure Location Lt brachial Position Sitting Pulse 76 Pulse Source Pulse Oximeter Pulse Oximetry (%) 96 Oxygen Delivery Method Room Air Intake Visit Reasons: asthma Intake Note: Patient is here to follow up on asthma Design Engineering Technician Required: No Allergies No Known Allergies Allergy (Verified 10/09/23 08:48) Tobacco use date assessed: 10/09/23 Dental Screening Dental Screen Date: 10/09/23 Did you have a dental visit in the last 12 months?: No Did you have a dental problem in the last 6 months where you did not have access to dental care?: No HPI asthma HPI Details 43-year-old obese male smoker with asthm a, last seen in September 2021 noted to have an elevated blood pressure reading at that time. Blood work was requested. Patient is here for follow-up. Patient did see the nurse practitioner in June 2023 ED visit May 2023 due to asthma exacerbation discharged on prednisone again had asthma exacerbation at that time and was given prednisone and Zithromax. September 2022 so nurse practitioner and noted blood pressure to be elevated still patient was started on lisinopril 5 mg once a day. Seen also in May 2022 for asthma. BP at home still still high still , hearing problem, asking for increase dose of the steroids, still smoking marijuana, also frequency PFSH Medical History Obesity (BMI 30-39.9) Generalized anxiety disorder Tobacco abuse Asthma Surgical History No pertinent past surgical history Family History Mother Diabetes Father No problems noted. Social History Housing: House Alcohol intake: never Patient Tobacco Use Status: Never used Tobacco (marijuana) e-Cigarette/Vaping Use: Never Used Second Hand Smoke Exposure: No Substance Use Type: Marijuana service: No Current occupational status: employed Current occupation: Self employed Cognitive needs: No Hearing needs: No Vision needs: No Questionnaire Thrive Questionnaire Date Thrive assessed: 10/09/23 AUDIT C Alcohol Use Questionnaire (AUDIT-C) 1. How often do you have a drink containing alcohol?: 2-4 times a month 2. How many drinks containing alcohol do you have on a typical day when you are drinking?: 3 or 4 3. How often do you have six or more drinks on one occasion?: Never Total Score: 3 Score Reviewed/Action Taken: No SHAINA-7 AMB Questionnaire SHAINA-7 Date SHAINA - 7 assessed: 10/09/23 Source: Developed by Drs. Xavi Plata, Katy Hernández, Kingston Jiménez and colleagues, with an educational jaiden from [employer]. Physical exam (Primary Care) Vital Signs: Last Vital Signs Pulse 76 10/09/23 08:48 BP 118/68 10/09/23 08:48 Pulse Ox 96 10/09/23 08:48 Oxygen Delivery Method Room Air 10/09/23 08:48 BMI result Body Mass Index 35.4 Tobacco/Smoking Status: Tobacco use Status Tobacco use date assessed 10/09/23 10/09/23 08:52 Patient Tobacco Use Status Never used Tobacco ( 10/09/23 08:55 marijuana) e-Cigarette/Vaping Use Never Used 10/09/23 08:52 Thrive Assessment: Date of Thrive Assessment Date Thrive assessed 10/09/23 10/09/23 08:52 Const General: alert; No acute distress Eyes Conjunctivae: conjunctivae normal Resp Auscultation: clear to auscultation bilaterally Cardio Rate: regular rate Rhythm: regular rhythm GI Inspection: Yes normal to inspection Extrem General: Yes normal to inspection and No edema Assessment and Plan Assessment & Plan (1) Tobacco abuse: Code(s): Z72.0 - Tobacco use Plan: Patient is strongly advised to stop smoking! (2) Asthma: Code(s): J45.909 - Unspecified asthma, uncomplicated Qualifiers: Asthma severity: moderate Asthma persistence: persistent Asthma complication type: uncomplicated Qualified Code(s): J45.40 - Moderate persistent asthma, uncomplicated Plan: Presently on albuterol and Advair and montelukast. (3) Hypertension: Code(s): I10 - Essential (primary) hypertension Plan: Continue with blood pressure medication. Decrease salt intake and exercise started on lisinopril 5 mg once a day (4) Obese: Code(s): E66.9 - Obesity, unspecified Qualifiers: Obesity type: due to excess calories Obesity classification: adult class 1 (BMI 30 - 34.9) Serious obesity comorbidity presence: without serious comorbidity Body mass index: BMI 32.0-32.9 Qualified Code(s): E66.09 - Other obesity due to excess calories; Z68.32 - Body mass index [BMI] 32.0-32.9, adult Plan: Diet and exercise (5) Hyperlipidemia: Code(s): E78.5 - Hyperlipidemia, unspecified Plan: Avoid fried foods, chicken skin, eggs, butter margarine, pastries and meat. Be it pork or beef they have a lot of cholesterol LDL goal of less than 130 and triglyceride of less than 150 (6) Impaired glucose tolerance: Code(s): R73.02 - Impaired glucose tolerance (oral) Plan: Decrease the amount of carbohydrate intake, pasta, bread, rice and potatoes are all sugar and that is aside from all the sweet stuff, remember that fruits are good but they are Sweet also. (7) Hearing loss: Code(s): H91.90 - Unspecified hearing loss, unspecified ear (8) Frequency of micturition: Code(s): R35.0 - Frequency of micturition (9) Tinnitus: Code(s): H93.19 - Tinnitus, unspecified ear Orders: Orders Complete Blood Count Auto Diff Today R73.02 - Impaired glucose tolerance (oral) Comprehensive Met. Panel Today R73.02 - Impaired glucose tolerance (oral) Thyroid Stimulating Hormone Today R73.02 - Impaired glucose tolerance (oral) Free T4 (Free Thyroxine) Today R73.02 - Impaired glucose tolerance (oral) Vitamin B12 and Folate Today R73.02 - Impaired glucose tolerance (oral) Lipid Panel Today E78.00 - Pure hypercholesterolemia, unspecified, R73.02 - Impaired glucose tolerance (oral) Hemoglobin A1c Today R73.02 - Impaired glucose tolerance (oral) UA w Microscopic Today R35.0 - Frequency of micturition Referrals Speech and Hearing Referral H91.90 - Unspecified hearing loss, unspecified ear Medications: Changed From lisinopril 5 mg PO DAILY 30 tabs 0RF I10 - Essential (primary) hypertension To lisinopril 10 mg PO DAILY 30 tabs 3RF 30 days I10 - Essential (primary) hypertension Refilled fluticasone propion-salmeterol 230-21 mcg/actuation (Advair HFA) 2 puffs inhalation BID 12 grams 3RF 30 days J45.40 - Moderate persistent asthma, uncomplicated Coding Level of Care Code Est Pt Level 4 (97201) Diagnoses Tobacco abuse Z72.0 Moderate persistent asthma without complication J45.40 Asthma severity: moderate Asthma persistence: persistent Asthma complication type: uncomplicated Hypertension I10 Class 1 obesity due to excess calories without serious comorbidity with body mass index (BMI) of 32.0 to 32.9 in adult E66.09; Z68.32 Obesity type: due to excess calories Obesity classification: adult class 1 (BMI 30 - 34.9) Serious obesity comorbidity presence: without serious comorbidity Body mass index: BMI 32.0-32.9 Hyperlipidemia E78.5 Impaired glucose tolerance R73.02 Hearing loss H91.90 Frequency of micturition R35.0 Tinnitus H93.19
== END 2023-10-09 10:00 | disposition home or self-care (01) ==
PROVIDERS: PCP Internal Medicine; Visit Provider Internal Medicine
DX: Z72.0 Tobacco use (principal); J45.40 Moderate persistent asthma, uncomplicated; I10 Essential (primary) hypertension; E66.09 Other obesity due to excess calories; Z68.32 Body mass index [BMI] 32.0-32.9, adult; E78.5 Hyperlipidemia, unspecified; R73.02 Impaired glucose tolerance (oral); H91.90 Unspecified hearing loss, unspecified ear; R35.0 Frequency of micturition; H93.19 Tinnitus, unspecified ear
CPT/HCPCS: 99214

== ENCOUNTER 2024-03-23 08:48 | Outpatient (AMB) | payer OTHER, SELFPAY ==
--- NOTE | 2024-03-23 08:48 | A.OFFPC_ITS ---
Vital Signs 03/23/24 08:49 Height 5 ft 8 in Weight 236 lb 0.6 oz BMI 35.9 BP 132/88 Blood Pressure Location Lt brachial Position Sitting Pulse 71 Pulse Source Pulse Oximeter Temp Source Skin Pulse Oximetry (%) 98 Oxygen Delivery Method Room Air Intake Visit Reasons: Annual Exam Dungeon Master Required: No Allergies No Known Allergies Allergy (Verified 03/23/24 08:55) Medication List - Last Reconciled 03/23/24 by Belen Echeverria PA-C albuterol sulfate 90 mcg/actuation (Ventolin HFA) 2 puffs inhalation Q4-6H PRN albuterol sulfate 90 mcg/actuation 2 puffs PO Q6H PRN albuterol sulfate 2.5 mg (3 mL) inhalation Q4H PRN fluticasone propion-salmeterol 230-21 mcg/actuation (Advair HFA) 2 puffs inhalation BID 30 days lisinopril 10 mg PO DAILY montelukast 10 mg PO DAILY Tobacco use date assessed: 03/23/24 Dental Screening Dental Screen Date: 10/09/23 HPI Annual Exam HPI Details 44-year-old male with past medical histo ry asthma, generalized anxiety disorder, hypertension, impaired glucose tolerance, and hyperlipidemia last seen by Dr. Voss 10/09/2023 coming in for annual exam.? In review of the notes patient was scheduled to be seen by [facility] but missed the appointment. Patient states he has been doing well. He states his asthma has been okay but he does find he is using his rescue inhaler at least 1-2 times daily with 2-3 times per week of nighttime awakenings. He also frequently uses his nebulizer. [facility] Medical History Obesity (BMI 30-39.9) Generalized anxiety disorder Tobacco abuse Asthma Surgical History No pertinent past surgical history Family History Mother Diabetes Father No problems noted. Social History Housing: House Alcohol intake: never Patient Tobacco Use Status: Never used Tobacco (marijuana) e-Cigarette/Vaping Use: Never Used Second Hand Smoke Exposure: No Substance Use Type: Marijuana service: No Current occupational status: employed Current occupation: Self employed Cognitive needs: No Hearing needs: No Vision needs: No Questionnaire Thrive Questionnaire Date Thrive assessed: 10/09/23 I am a: Patient What is your living situation today?: I have a steady place to live Within the past 12 months, did the food you bought not last and you didn't have the money to get more?: Never true Within the past 12 months, did you worry whether your food would run out before you got money to buy more?: Never true Do you have trouble paying for medicines?: No Do you have trouble getting transportation to medical appointments?: No Do you have trouble paying your heating and electricity bill?: No Do you have trouble taking care of your child, family member or friend?: No Do you have trouble with day-to-day activities such as bathing, preparing meals, shopping, managing finances, etc.?: No Are you currently unemployed and looking for a job?: No Are you interested in more education?: No Please select the resources that you would like help with: None Currently or been in a relationship where the following occur: No concerns reported THRIVE Score: 0 AUDIT C Alcohol Use Questionnaire (AUDIT-C) 1. How often do you have a drink containing alcohol?: 2-4 times a month 2. How many drinks containing alcohol do you have on a typical day when you are drinking?: 3 or 4 3. How often do you have six or more drinks on one occasion?: Never Total Score: 3 Score Reviewed/Action Taken: No SHAINA-7 AMB Questionnaire SHAINA-7 Date SHAINA - 7 assessed: 03/23/24 Feeling nervous, anxious, or on edge: 0 = Not at all Not being able to stop or control worryin = Not at all Worrying too much about different things: 0 = Not at all Trouble relaxin = Not at all Being so restless that it is hard to sit still: 0 = Not at all Becoming easily annoyed or irritable: 0 = Not at all Feeling afraid as if something awful might happen: 0 = Not at all Total SHAINA-7 score (0-4 normal; 5-9 mild; 10-14 moderate; 15-21 severe): 0 Source: Developed by Drs. Xavi Plata, Katy Hernández, Kingston Jiménez and colleagues, with an educational jaiden from [employer]. SHAINA-7 Assessment Billing SHAINA-7 Assessment Tool: SHAINA-7 Assessment 83054 Review of Systems Const Denies body aches, Denies fatigue, Denies fever(s), Denies frequent falls, Denies headache(s) and Denies weakness Eyes Reports no additional complaints and Denies change in vision ENT Denies dysphagia, Denies dizziness, Denies facial pain, Denies headache(s), Denies nasal congestion and Denies odynophagia Card Denies chest pain, Denies syncope, Denies irregular heart rhythm, Denies leg edema, Denies lightheadedness and Denies dyspnea Resp Details: Mild intermittent chest tightness resolves with inhaler Denies cough and Denies dyspnea GI Denies constipation, Denies dysphagia, Denies dyspepsia, Denies diarrhea, Denies nausea, Denies odynophagia and Denies vomiting Denies dysuria, Denies urinary frequency, Denies urinary hesitancy and Denies urinary urgency Musc Denies back pain and Denies myalgias Skin/Breast Reports system reviewed and no additional complaints, except as documented Neuro Denies dizziness, Denies syncope, Denies frequent falls, Denies headache(s) and Denies weakness Psych Reports no additional complaints Endo Denies fatigue Physical exam (Primary Care) Vital Signs: Oxygen Delivery Method Room Air 03/23/24 08:49 Tobacco/Smoking Status: Tobacco use Status Tobacco use date assessed 10/09/23 10/09/23 08:52 Patient Tobacco Use Status Never used Tobacco 10/09/23 08:55 e-Cigarette/Vaping Use Never Used 10/09/23 08:52 Thrive Assessment: Date of Thrive Assessment Date Thrive assessed 10/09/23 10/09/23 08:52 Currently or been in a relationship where the following occur: No concerns reported Const General: cooperative, healthy appearing, comfortable and no acute distress Orientation/consciousness: patient oriented x3 HENMT Head: Yes normocephalic Ears: hearing grossly normal bilaterally, external ears normal, TM's normal bilaterally and EAC's normal General nose exam: Normal external nose present Face and sinus: Yes normal facial exam and Yes sinuses nontender Mouth: Normal oral and palatal mucosa present and tongue normal Throat: Yes posterior oropharynx normal Eyes General: appearance normal, both eyes and all related structures Conjunctivae: conjunctivae normal Pupils: Equal, round and reactive pupils present EOM: EOMs intact bilaterally and No Nystagmus present Neck Neck: Yes normal visual inspection, Yes full ROM and Yes no lymphadenopathy Chest Chest palpation & inspection: normal inspection of the chest Resp Effort & Inspection: normal respiratory effort Auscultation: clear to auscultation bilaterally, no crackles, no rales, no rhonchi, no wheezes and breath sounds present Cardio Rate: regular rate Rhythm: regular rhythm Peripheral pulses: radial pulses present and dorsalis pedis present GI Inspection: Yes normal to inspection and No Abdominal wall edema Palpation (GI): Soft to palpation, not firm and nontender Auscultation: normal bowel sounds Rectal Exam - Male: Yes deferred General: Yes no CVA tenderness Back/Spine/Pelvis Back: no CVA tenderness Skin General skin exam: no rashes or lesions noted Neuro General: patient oriented x3 Cranial nerves: Yes Equal, round and reactive pupils present, Yes Midline tongue present, Yes Ability to bilaterally elevate shoulders present and No Nystagmus present Gait exam (Neuro): Normal gait present Extrem General: Yes normal to inspection, Yes full ROM, No no pedal edema and No edema Psych Speech and movement: Normal speech and movement present Affect: normal affect Insight: Good insight present (Psych) Judgement: Good judgement present (Psych) Assessment and Plan Assessment & Plan (1) Asthma: Code(s): J45.909 - Unspecified asthma, uncomplicated Qualifiers: Asthma severity: moderate Asthma persistence: persistent Asthma complication type: uncomplicated Qualified Code(s): J45.40 - Moderate persistent asthma, uncomplicated Plan: Asthma is not well controlled at this time. Incruse inhaler sent to pharmacy to be taken daily along with Advair daily and rescue inhaler as needed. Avoid triggers such as allergies. Informed patient if inhalers not covered to reach out for new prescription. We will follow up in 3 months to re-evaluate asthma. (2) Impaired glucose tolerance: Code(s): R73.02 - Impaired glucose tolerance (oral) Plan: Patient has been trying to exercise more. Ordered updated labs and will follow up when results are available. Decrease the amount of carbohydrates such as pasta, bread, rice, and potatoes and limit the amount of sweets. Although fruits are generally healthy they should be eaten in moderation as they are still high in sugar. (3) Hyperlipidemia: Code(s): E78.5 - Hyperlipidemia, unspecified Plan: Last labs showed elevated LDL with HDL within goal. Patient is not currently on any medications and will follow up with updated labs and re-evaluate. Avoid foods that are high in cholesterol such as red meat, fried foods, eggs and baked goods. (4) Hypertension: Code(s): I10 - Essential (primary) hypertension Plan: Blood pressure is well controlled at this time, continue on lisinopril. Avoid s alt intake and encourage healthy diet and regular exercise. (5) Obese: Code(s): E66.9 - Obesity, unspecified Qualifiers: Obesity type: due to excess calories Obesity classification: adult class 1 (BMI 30 - 34.9) Serious obesity comorbidity presence: without serious comorbidity Body mass index: BMI 32.0-32.9 Qualified Code(s): E66.09 - Other obesity due to excess calories; Z68.32 - Body mass index [BMI] 32.0-32.9, adult Plan: Encouraged healthy diet and exercise. Plan Thank you for allowing me to participate in the care of this patient. I personally spent 30 minutes reviewing, examining and charting on this patient. Orders: Referrals Speech and Hearing Referral H91.90 - Unspecified hearing loss, unspecified ear Medications: New umeclidinium 62.5 mcg/actuation (Incruse Ellipta) 1 inh inhalation DAILY 30 ea 2RF Refilled albuterol sulfate 90 mcg/actuation (Ventolin HFA) 2 puffs inhalation Q4-6H PRN 6.7 grams 0RF shortness of breath or wheezing Coding Level of Care Code Est Pt Prev Care 40-64y(46986) Diagnoses Moderate persistent asthma without complication J45.40 Asthma severity: moderate Asthma persistence: persistent Asthma complication type: uncomplicated Impaired glucose tolerance R73.02 Hyperlipidemia E78.5 Hypertension I10 Class 1 obesity due to excess calories without serious comorbidity with body mass index (BMI) of 32.0 to 32.9 in adult E66.09; Z68.32 Obesity type: due to excess calories Obesity classification: adult class 1 (BMI 30 - 34.9) Serious obesity comorbidity presence: without serious comorbidity Body mass index: BMI 32.0-32.9 Additional Codes SHAINA-7 Assessment Billing - SHAINA-7 Assessment Tool: SHAINA-7 Assessment 97010 ([id number])
[2024-03-23 08:49] VITALS: BP 132/88; PULSE 71; O2SAT 98; BMI 35.9
== END 2024-03-23 09:55 | disposition home or self-care (01) ==
PROVIDERS: PCP Internal Medicine
DX: Z00.00 Encounter for general adult medical examination without abnormal findings (principal); R73.02 Impaired glucose tolerance (oral); J45.40 Moderate persistent asthma, uncomplicated; E78.5 Hyperlipidemia, unspecified; I10 Essential (primary) hypertension; E66.09 Other obesity due to excess calories; Z68.32 Body mass index [BMI] 32.0-32.9, adult
CPT/HCPCS: 99396

== ENCOUNTER 2024-04-02 09:32 | Outpatient (REF) | payer OTHER, SELFPAY | END 2024-04-02 09:33 | disposition home or self-care (01) | LOC: HO.SH 09:32 | PROVIDERS: PCP Internal Medicine | DX: Z01.118 Encounter for examination of ears and hearing with other abnormal findings (principal); H90.42 Sensorineural hearing loss, unilateral, left ear, with unrestricted hearing on the contralateral side | CPT/HCPCS: 92557; 92567; 92588 ==

== ENCOUNTER 2024-11-02 12:33 | Outpatient (AMB) | payer OTHER, SELFPAY ==
--- NOTE | 2024-11-02 12:39 | MHC.OFFWIV ---
Intake Vital Signs 11/02/24 12:40 Weight 242 lb BP 146/100 H Blood Pressure Location Rt brachial Position Sitting Pulse 78 Pulse Source Pulse Oximeter Pulse Oximetry (%) 98 Oxygen Delivery Method Room Air Intake Visit Reasons: EP-std testing Intake Note: Patient here because his sexual partner found out they had Trick about 1 week ago. Patient Tobacco Use Status: Never used Tobacco (marijuana) Allergies No Known Allergies Allergy (Verified 11/02/24 12:40) Medication List - Last Reconciled 11/02/24 by Aubree Bhagat MD albuterol sulfate 90 mcg/actuation (Ventolin HFA) 2 puffs inhalation Q4-6H PRN albuterol sulfate 90 mcg/actuation 2 puffs PO Q6H PRN albuterol sulfate 2.5 mg (3 mL) inhalation Q4H PRN fluticasone propion-salmeterol 230-21 mcg/actuation (Advair HFA) 2 puffs inhalation BID 30 days lisinopril 10 mg PO DAILY montelukast 10 mg PO DAILY umeclidinium 62.5 mcg/actuation (Incruse Ellipta) 1 inh inhalation DAILY Do you need a note to return to daycare/school/sports/work: No HPI EP-std testing HPI Details Patient is a 44-year-old gentleman came in today to be screened for STDs Patient says that her partner has been diagnosed with Trichomonas infection And he has been exposed She has been treated already I am prescribing metronidazole 500 mg tablets 2 g to be taken once I have also ordered GC chlamydia test to be done in lab along with HIV syphilis and herpes test hepatitis-C and hepatitis-B antibodies Patient have no symptoms there is no penile discharge there is no dysuria There is no fever no chills no abdominal pain PFSH Medical History Obesity (BMI 30-39.9) Generalized anxiety disorder Tobacco abuse Asthma Surgical History No pertinent past surgical history Family History Mother Diabetes Father No problems noted. Social History Housing: House Alcohol intake: never Patient Tobacco Use Status: Never used Tobacco (marijuana) e-Cigarette/Vaping Use: Never Used Second Hand Smoke Exposure: No Substance Use Type: Marijuana service: No Current occupational status: employed Current occupation: Self employed Cognitive needs: No Hearing needs: No Vision needs: No Review of Systems Const All systems reviewed & are unremarkable except as noted in HPI and below Physical Exam Vital Signs: Last Vital Signs Pulse 78 11/02/24 12:40 BP 146/100 H 11/02/24 12:40 Pulse Ox 98 11/02/24 12:40 Oxygen Delivery Method Room Air 11/02/24 12:40 Const General: no acute distress Orientation/consciousness: patient oriented x3 Eyes General: appearance normal, both eyes and all related structures Resp Effort & Inspection: normal respiratory effort and able to speak in complete sentences Neuro General: patient oriented x3 Psych Mental Status: mental status grossly normal Assessment & Plan Assessment & Plan (1) Screening for STD (sexually transmitted disease): Code(s): Z11.3 - Encounter for screening for infections with a predominantly sexual mode of transmission Plan Patient is a 44-year-old gentleman came in today to be screened for STDs Patient says that her partner has been diagnosed with Trichomonas infection And he has been exposed She has been treated already I am prescribing metronidazole 500 mg tablets 2 g to be taken once I have also ordered GC chlamydia test to be done in lab along with HIV syphilis and herpes test hepatitis-C and hepatitis-B antibodies Patient have no symptoms there is no penile discharge there is no dysuria There is no fever no chills no abdominal pain Orders: Orders HIV Ab/Ag Today Z11.3 - Encounter for screening for infections with a predominantly sexual mode of transmission Hepatitis B Surface Antibody Today Z11.3 - Encounter for screening for infections with a predominantly sexual mode of transmission Syphilis Screen Today Z11.3 - Encounter for screening for infections with a predominantly sexual mode of transmission CT NG by PCR Today Z11.3 - Encounter for screening for infections with a predominantly sexual mode of transmission Herpes Simplex Virus Ab IgG Today Z11.3 - Encounter for screening for infections with a predominantly sexual mode of transmission Hepatitis C Antibody Today Z11.3 - Encounter for screening for infections with a predominantly sexual mode of transmission Medications: New metronidazole 2,000 mg (4 x 500 mg) PO ONCE 4 tabs 0RF 1 day Coding Level of Care Code Est Pt Level 3 (02203) Diagnoses Screening for STD (sexually transmitted disease) Z11.3
[2024-11-02 12:40] VITALS: BP 146/100; PULSE 78; O2SAT 98
--- OUTSIDE RECORDS SUMMARY | 2024-11-02 15:14 | XMS_ITS | Clinical Summary ---
Author Organization [facility] ity Address [address] [place] [address] Care Team Providers Care Jet Pilot Name Role Phone Unavailable Primary Care Provider Unavailabl e Social History Tobacco Use Types Packs/Day Years Used Date Smoking Tobacco: Never Assessed Sex and Gender Information Value Date Recorded Sex Assigned at Not on file Legal Sex Male 10:07 AM EST Gender Identity Not on file Sexual Orientation Not on file Plan of Treatment Health Maintenance Due Date Last Done Comments DTaP,Tdap,and Td Vaccines (1 - Tdap) 01/11/1999 Hepatitis B Vaccines (1 of 3 - 19+ 3-dose series) 01/11/1999 COVID-19 Vaccine (2023-2 5 season) 2024 Influenza Vaccine (#1) 2024 HIB Vaccines Aged Out No longer eligi ble based on patient's age to complete this topic HPV Vaccines Aged Out No longer eligi ble based on patient's age to complete this topic Hepatitis A Vaccines Aged Out No long er eligible based on patient's age to complete this topic IPV Vaccines Aged Out No longer eligi ble based on patient's age to complete this topic MMR Vaccines Aged Out No longer eligi ble based on patient's age to complete this topic Meningococcal ACWY Vaccine Aged Out N o longer eligible based on patient's age to complete this topic Meningococcal B Vacine Aged Out No lo nger eligible based on patient's age to complete this topic Pneumococcal Vaccine: Pediat rics (0 to 5 Years) and At-Risk Patients (6 to 64 Years) Aged Out No longer eligible b ased on patient's age to complete this topic RSV Immunization Patients Un be 20 months Aged Out No longer eligible b ased on patient's age to complete this topic Varicella Vaccines Aged Out No longer eligible based on patient's age to complete this topic
== END 2024-11-02 12:51 | disposition home or self-care (01) ==
PROVIDERS: PCP Internal Medicine; Visit Provider Internal Medicine
DX: Z11.3 Encounter for screening for infections with a predominantly sexual mode of transmission (principal)

== ENCOUNTER 2024-11-02 12:33 | Outpatient (REF) | payer OTHER, SELFPAY ==
--- OUTSIDE RECORDS SUMMARY | 2024-11-03 16:28 | XMS_ITS | Clinical Summary ---
Author Organization [facility] ity Address [address] [place] [address] Care Team Providers Care Tour Sales Representative Name Role Phone Unavailable Primary Care Provider [...]
== END 2024-11-02 12:34 | disposition home or self-care (01) ==
LOC: HO.HMGCLDS 12:33
PROVIDERS: PCP Internal Medicine; Visit Provider Internal Medicine
DX: Z20.2 Contact with and (suspected) exposure to infections with a predominantly sexual mode of transmission (principal)
CPT/HCPCS: 99212

== ENCOUNTER 2024-11-03 13:32 | Outpatient (REF) | payer OTHER, SELFPAY ==
[2024-11-04 08:18] LABS: Syphilis Screen Nonreactive (Nonreactive)
[2024-11-04 08:41] LABS: HBS Num1 0.71 mIU/mL (0-7.99); HIV AB/AG Nonreactive (Nonreactive); HIV Num 1 0.07 S/CO (0.00-0.99); ~HepC Num1 0.11 S/CO (0.00-0.79); ~Hepatitis B Surface Antibody NONREACTIVE (Nonreactive); ~Hepatitis C Antibody Nonreactive (Nonreactive)
== END 2024-11-03 13:33 | disposition home or self-care (01) ==
LOC: HO.HMGCLDS 13:32
PROVIDERS: Visit Provider Internal Medicine
DX: Z11.3 Encounter for screening for infections with a predominantly sexual mode of transmission (principal)
CPT/HCPCS: 36415; 86695; 86696; 86706; 86780; 86803; 87389

== ENCOUNTER 2025-03-29 14:33 | Outpatient (AMB) | payer OTHER, SELFPAY ==
--- NOTE | 2025-03-29 14:35 | MHC.PC.OV ---
Vital Signs 03/29/25 14:36 03/29/25 15:04 Height 5 ft 8 in Weight 236 lb 6 oz BMI 35.9 BP 150/84 H 130/84 Blood Pressure Location Lt brachial Lt brachial Position Sitting Sitting Pulse 68 Temp 97.3 F Temp Source Temporal Artery Scan Pulse Oximetry (%) 99 Oxygen Delivery Method Room Air Intake Visit Reasons: Med Review Trade Manager Required: No Accompanied by: Self / Same As Patient Allergies No Known Allergies Allergy (Verified 03/29/25 14:48) Medication List - Last Reconciled 03/29/25 by Belen Echeverria PA-C albuterol sulfate 90 mcg/actuation (Ventolin HFA) 2 puffs inhalation Q4-6H PRN albuterol sulfate 90 mcg/actuation 2 puffs PO Q6H PRN albuterol sulfate 2.5 mg (3 mL) inhalation Q4H PRN fluticasone propion-salmeterol 230-21 mcg/actuation (Advair HFA) 2 puffs inhalation BID 30 days lisinopril 10 mg PO DAILY metronidazole 2,000 mg (4 x 500 mg) PO ONCE 1 day montelukast 10 mg PO DAILY umeclidinium 62.5 mcg/actuation (Incruse Ellipta) 1 inh inhalation DAILY Tobacco use date assessed: 03/29/25 Dental Screening Dental Screen Date: 03/29/25 Did you have a dental visit in the last 12 months?: No Did you have a dental problem in the last 6 months where you did not have access to dental care?: No Was dental information given to patient?: No HPI Med Review HPI Details 44-year-old male with past medical history asthma, generalized anxiety disorder, hypertension, impaired glucose tolerance, and hyperlipidemia last seen 03/2024 coming in for follow up. Presenting with hypertension and asthma management. The patient monitors his blood pressure at home and has noted elevated readings. He is on lisinopril and his blood pressure was 130/84 mmHg during the visit. Contributing factors such as stress and diet were discussed. Asthma is Managed with Advair and albuterol inhalers, the patient reports infrequent use of the albuterol inhaler. Asthma exacerbations occur during ragweed season. The patient reports erectile dysfunction, potentially linked to hypertension. A testosterone level test was ordered. Discussed colorectal cancer screening today patient would like to think about this. [facility] Medical History Obesity (BMI 30-39.9) Generalized anxiety disorder Tobacco abuse Asthma Surgical History No pertinent past surgical history Family History Mother Diabetes Father No problems noted. Social History Housing: House Alcohol intake: never Patient Tobacco Use Status: Never used Tobacco (marijuana) e-Cigarette/Vaping Use: Never Used Second Hand Smoke Exposure: No Substance Use Type: Marijuana service: No Current occupational status: employed Current occupation: Self employed Cognitive needs: No Hearing needs: No Vision needs: No Questionnaire PHQ-9 Over the last 2 weeks, how often have you been bothered by any of the following problems? 1. Little interest or pleasure in doing things: not at all 2. Feeling down, depressed, or hopeless: not at all 3. Trouble falling or staying asleep, or sleeping too much: not at all 4. Feeling tired or having little energy: several days 5. Poor appetite or overeating: several days 6. Feeling bad about yourself - or that you are a failure or have let yourself or your family down: not at all 7. Trouble concentrating on things, such as reading the newspaper or watching television: not at all 8. Moving or speaking so slowly that other people could have noticed. Or the opposite - being so fidgety or restless that you have been moving around a lot more than usual: not at all 9. Thoughts that you would be better off or of hurting yourself in some way: not at all Total score: 2 Depression Screening Interpretation: Negative Depression Screening Done: Yes [id number] - PHQ-9 Billing: Yes Source: Developed by Drs. Xavi Plata, Katy Hernández, Kingston Jiménez and colleagues, with an educational jaiden from [employer]. Thrive Questionnaire Date Thrive assessed: 03/29/25 I am a: Patient What is your living situation today?: I have a steady place to live Within the past 12 months, did the food you bought not last and you didn't have the money to get more?: Often true Within the past 12 months, did you worry whether your food would run out before you got money to buy more?: Never true Do you have trouble paying for medicines?: No Do you have trouble getting transportation to medical appointments?: No Do you have trouble paying your heating and electricity bill?: No Do you have trouble taking care of your child, family member or friend?: No Do you have trouble with day-to-day activities such as bathing, preparing meals, shopping, managing finances, etc.?: No Are you currently unemployed and looking for a job?: No Are you interested in more education?: No Please select the resources that you would like help with: None Currently or been in a relationship where the following occur: I choose not to answer THRIVE Score: 1 AUDIT C Alcohol Use Questionnaire (AUDIT-C) 1. How often do you have a drink containing alcohol?: 4 or more times a week 2. How many drinks containing alcohol do you have on a typical day when you are drinking?: 3 or 4 3. How often do you have six or more drinks on one occasion?: Monthly Total Score: 7 SHAINA-7 AMB Questionnaire SHAINA-7 Date SHAINA - 7 assessed: 03/29/25 Feeling nervous, anxious, or on edge: 1 = Several days Not being able to stop or control worryin = Not at all Worrying too much about different things: 0 = Not at all Trouble relaxin = Several days Being so restless that it is hard to sit still: 1 = Several days Becoming easily annoyed or irritable: 1 = Several days Feeling afraid as if something awful might happen: 0 = Not at all Total SHAINA-7 score (0-4 normal; 5-9 mild; 10-14 moderate; 15-21 severe): 4 Source: Developed by Drs. Xavi Plata, Katy Hernández, Kingston Jiménez and colleagues, with an educational jaiden from [employer]. SHAINA-7 Assessment Billing SHAINA-7 Assessment Tool: SHAINA-7 Assessment 38327 Review of Systems Const Denies body aches, Denies chills, Denies fever(s), Reports headache(s) and Denies poor appetite Eyes Reports no additional complaints ENT Denies dizziness and Reports headache(s) Card Denies chest pain, Denies syncope, Denies edema, Denies irregular heart rhythm, Denies lightheadedness and Denies dyspnea Resp Denies cough and Denies dyspnea GI Denies abdominal pain, Denies nausea and Denies vomiting Reports no additional complaints Musc Reports no additional complaints and Denies abnormal gait Skin/Breast Reports system reviewed and no additional complaints, except as documented Neuro Denies abnormal gait, Denies dizziness, Denies syncope and Reports headache(s) Psych Reports no additional complaints Physical exam (Primary Care) Vital Signs: Last Vital Signs Temp 97.3 F 03/29/25 14:36 Pulse 68 03/29/25 14:36 BP 150/84 H 03/29/25 14:36 Pulse Ox 99 03/29/25 14:36 Oxygen Delivery Method Room Air 03/29/25 14:36 BMI result Body Mass Index 35.9 Tobacco/Smoking Status: Tobacco use Status Tobacco use date assessed 03/29/25 03/29/25 14:42 Patient Tobacco Use Status Never used Tobacco ( 03/29/25 14:42 marijuana) e-Cigarette/Vaping Use Never Used 03/29/25 14:42 PHQ-9: PHQ-9 Score PHQ-9: Total score 2 03/29/25 14:42 Depression Screening Interpretation: Negative Thrive Assessment: Date of Thrive Assessment Date Thrive assessed 03/29/25 03/29/25 14:42 Currently or been in a relationship where the following occur: I choose not to answer Const General: cooperative, healthy appearing, comfortable and no acute distress Orientation/consciousness: patient oriented x3 [facility] Head: Yes normocephalic Ears: hearing grossly normal bilaterally General nose exam: Normal external nose present Eyes General: appearance normal, both eyes and all related structures Conjunctivae: conjunctivae normal Neck Neck: Yes full ROM and Yes no lymphadenopathy Resp Effort & Inspection: normal respiratory effort Auscultation: clear to auscultation bilaterally, no crackles, no rales, no rhonchi and no wheezes Cardio Rate: regular rate Rhythm: regular rhythm Skin General skin exam: no rashes or lesions noted Neuro General: patient oriented x3 Gait exam (Neuro): Normal gait present Extrem General: Yes normal to inspection, Yes full ROM and No edema Psych Affect: normal affect Attitude: cooperative Insight: Good insight present (Psych) Judgement: Good judgement present (Psych) Coding Level of Care Code Est Pt Level 3 (63698) Diagnoses Hypertension I10 Hyperlipidemia E78.5 Obesity (BMI 30-39.9) E66.9 Elevated fasting glucose R73.01 Moderate persistent asthma without complication J45.40 Asthma severity: moderate Asthma persistence: persistent Asthma complication type: uncomplicated Erectile dysfunction N52.9 Additional Codes SHAINA-7 Assessment Billing - SHAINA-7 Assessment Tool: SHAINA-7 Assessment 17750 ([id number]) PHQ-9 - 32972 - PHQ-9 Billing: Yes ([id number]) Assessment & Plan Assessment & Plan (1) Hypertension: Code(s): I10 - Essential (primary) hypertension Category: Medical Plan: Continue on current blood pressure medication. Avoid salt intake and encourage healthy diet and regular exercise. Blood pressure normalized once retaken 130/84. Patient was given blood pressure while at card advised to keep a log of his blood pressures and bring to the next visit. (2) Hyperlipidemia: Code(s): E78.5 - Hyperlipidemia, unspecified Category: Medical Plan: Avoid foods that are high in cholesterol such as red meat, fried foods, eggs and baked goods. Triglyceride goal of less than 150 and LDL goal of less than 130. (3) Obesity (BMI 30-39.9): Code(s): E66.9 - Obesity, unspecified Category: Medical Plan: Healthy diet and regular exercise is encouraged. (4) Elevated fasting glucose: Code(s): R73.01 - Impaired fasting glucose Category: Medical Plan: Decrease the amount of carbohydrates such as pasta, bread, rice, and potatoes and limit the amount of sweets. Although fruits are generally healthy they should be eaten in moderation as they are still high in sugar. (5) Asthma: Code(s): J45.909 - Unspecified asthma, uncomplicated Category: Medical Qualifiers: Asthma severity: moderate Asthma persistence: persistent Asthma complication type: uncomplicated Qualified Code(s): J45.40 - Moderate persistent asthma, uncomplicated Plan: Asthma currently controlled on present medications. Continue on inhalers.? Avoid triggers such as allergies. (6) Erectile dysfunction: Code(s): N52.9 - Male erectile dysfunction, unspecified Category: Medical Plan: Patient reporting symptoms of erectile dysfunction plan to obtain testosterone level. Discussed this may be related to a number of factors. Consider referral to Urology Plan The patient will continue lisinopril for hypertension and monitor blood pressure at home, with lifestyle modifications to aid in management. A blood pressure log was provided for tracking. Asthma management will continue with Advair and albuterol inhalers, with emphasis on using the rescue inhaler during exacerbations. A testosterone level test was ordered to explore causes of erectile dysfunction, with consideration of hypertension and anxiety as contributing factors. Preventative care includes colorectal cancer screening options, and comprehensive blood work was ordered to evaluate overall health. This note was constructed using voice recognition software. While every effort has been made to ensure accuracy and tamping machine operator road forms, still areas may have been included sometimes these areas may affect the content or meeting of the given symptoms. Total time spent caring for the patient today was 20 minutes. This includes time spent before the visit reviewing the chart, time spent during the visit, and time spent after the visit and documentation. Patient was informed and verbally consented to the use of an ambient scribe for clinic note documentation during this visit. Orders: Orders Comprehensive Met. Panel Today R73.02 - Impaired glucose tolerance (oral), Z00.00 - Encounter for general adult medical examination without abnormal findings Vitamin B12 and Folate Today I10 - Essential (primary) hypertension, Z13.21 - Encounter for screening for nutritional disorder Vitamin D 25-OH Total Today I10 - Essential (primary) hypertension, Z00.00 - Encounter for general adult medical examination without abnormal findings Testosterone, Total Today N52.9 - Male erectile dysfunction, unspecified HIV Ab/Ag Today Z11.3 - Encounter for screening for infections with a predominantly sexual mode of transmission HSV I and II,IHC Today Z11.3 - Encounter for screening for infections with a predominantly sexual mode of transmission UA CC w/rflx Micro + Cult Today R35.89 - Other polyuria Lipid Panel Today E78.00 - Pure hypercholesterolemia, unspecified Complete Blood Count Auto Diff Today I10 - Essential (primary) hypertension, Z00.00 - Encounter for general adult medical examination without abnormal findings TSH reflex Free T4 Today Z13.29 - Encounter for screening for other suspected endocrine disorder Free T4 (Free Thyroxine) Today Z00.00 - Encounter for general adult medical examination without abnormal findings, Z13.29 - Encounter for screening for other suspected endocrine disorder Hemoglobin A1c Today R73.02 - Impaired glucose tolerance (oral) RPR Monitor reflex titer Today Z11.3 - Encounter for screening for infections with a predominantly sexual mode of transmission CT NG by PCR Urine Today Z11.3 - Encounter for screening for infections with a predominantly sexual mode of transmission Medications: Refilled albuterol sulfate 90 mcg/actuation (Ventolin HFA) 2 puffs inhalation Q4-6H PRN 6.7 grams 0RF shortness of breath or wheezing albuterol sulfate 2.5 mg (3 mL) inhalation Q4H PRN 180 mL 0RF shortness of breath or wheezing lisinopril 10 mg PO DAILY 90 tabs 1RF I10 - Essential (primary) hypertension montelukast 10 mg PO DAILY 30 tabs 2RF Discontinued albuterol sulfate 90 mcg/actuation Discontinued Reason: Patient no longer taking 2 puffs PO Q6H PRN 18 ea 0RF for wheezing umeclidinium 62.5 mcg/actuation (Incruse Ellipta) Discontinued Reason: Patient no longer taking 1 inh inhalation DAILY 30 ea 2RF metronidazole Discontinued Reason: Patient no longer taking 2,000 mg (4 x 500 mg) PO ONCE 1 day 4 tabs 0RF
[2025-03-29 14:36] VITALS: BP 150/84; PULSE 68; TEMP 36.3; O2SAT 99; BMI 35.9
[2025-03-29 15:04] VITALS: BP 130/84
--- OUTSIDE RECORDS SUMMARY | 2025-03-29 15:47 | XMS_ITS | Clinical Summary ---
Author Organization [facility] ity Address [address] [place] [address] Care Team Providers Care Corporation Officer Name Role Phone Unavailable Primary Care Provider [...] 01/11/1999 COVID-19 Vaccine (2023-2 5 season) 2024 Depression Screening 09/08/2024 Influenza Vaccine (#1) 2025 HIB Vaccines Aged Out No longer eligi [...] age to complete this topic Meningococcal B Vaccine Aged Out No l onger eligible based on patient's age to complete this topic Pneumococcal Vaccine: Pediat rics (0 to 5 Years) and At-Risk Patients (6 to 49 Years) Aged Out No longer eligible b ased on patient's age to complete this topic RSV Immunization Patients Un be 20 months Aged Out No longer eligible b ased on patient's age to complete this topic Varicella Vaccines Aged Out No longer eligible based on patient's age to complete this topic
== END 2025-03-29 15:17 | disposition home or self-care (01) ==
LOC: HO.HMCH 14:34
DX: I10 Essential (primary) hypertension (principal); E78.5 Hyperlipidemia, unspecified; E66.9 Obesity, unspecified; Z68.35 Body mass index [BMI] 35.0-35.9, adult; R73.01 Impaired fasting glucose; J45.40 Moderate persistent asthma, uncomplicated; N52.9 Male erectile dysfunction, unspecified

== ENCOUNTER → 2025-03-29 14:33 | Outpatient (BNVA) | payer OTHER, SELFPAY | DX: F41.1 Generalized anxiety disorder (principal); J45.40 Moderate persistent asthma, uncomplicated; I10 Essential (primary) hypertension; R73.01 Impaired fasting glucose; E78.5 Hyperlipidemia, unspecified; E66.9 Obesity, unspecified; N52.9 Male erectile dysfunction, unspecified; R73.02 Impaired glucose tolerance (oral); J45.909 Unspecified asthma, uncomplicated | CPT/HCPCS: 96127; 99212 ==

== ENCOUNTER 2025-08-28 20:53 | Emergency (ER) | payer OTHER, SELFPAY ==
[2025-08-28 20:58] VITALS: BP 152/103; BP 190/110; PULSE 63; PULSE 72; RESP 18; TEMP 36.9; O2SAT 95; O2SAT 99; BMI 36.1
[2025-08-28 21:26] VITALS: BP 152/103; PULSE 115; RESP 14; TEMP 36.9; O2SAT 96
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
--- OUTSIDE RECORDS SUMMARY | 2025-08-28 21:56 | XMS_ITS | Clinical Summary ---
Author Organization [facility] ity Address [address] [place] [address] Care Team Providers Care Distribution Engineering Technologist Name Role Phone Unavailable Primary Care Provider [...] of 3 - 19+ 3-dose series) 01/11/1999 HPV Vaccines (1 - 3-dose SCD M series) 01/11/2007 Depression Screening 09/08/2024 COVID-19 Vaccine (1 - 2024-2 6 season) 2025 Influenza Vaccine (#1) 2025 RSV Immunization Adult Patie nts (1 - 1-dose 75+ series) 01/11/2055 HIB Vaccines Aged Out No longer eligi [...]
[2025-08-28] MEDS: Lidocaine 4 % Patch ADH..PATCH 1 PATCH TRANSDERMA (23:22)
[2025-08-28 23:23] VITALS: BP 134/93; PULSE 75; RESP 16; TEMP 36.9; O2SAT 95
[2025-08-28 23:28] VITALS: BP 134/93; PULSE 75; RESP 16; TEMP 36.9; O2SAT 95
== END 2025-08-28 23:29 | disposition home or self-care (01) ==
PROVIDERS: Emergency Provider Student in an Organized Health Care Education/Training Program; PCP Internal Medicine
DX: S39.012A Strain of muscle, fascia and tendon of lower back, initial encounter (principal); V43.51XA Car driver injured in collision with sport utility vehicle in traffic accident, initial encounter; Y93.89 Activity, other specified; Y92.414 Local residential or business street as the place of occurrence of the external cause; Y99.9 Unspecified external cause status
CPT/HCPCS: 99283; 99284